=== PATIENT | female | born 1985 | race Caucasian/White ===

== ENCOUNTER 2017-08-30 19:46 | Inpatient (IN) | payer SELFPAY, OTHER ==
[2017-08-30] MEDS ORDERED: 0.9 % SODIUM CHLORIDE 10 ML DISP.SYRIN. IV (20:00)
[2017-08-30 20:07] LABS: URINE HCG POC HCG NEGATIVE (Negative)
[2017-08-30 20:12] LABS: BILIRUBIN,URINE NEGATIVE (NEG); CLARITY,URINE CLEAR; GLUCOSE,URINE NEGATIVE (NEG); NITRITE,URINE NEGATIVE (NEG); PROTEIN,URINE NEGATIVE (NEG-TRACE); UROBILINOGEN,URINE 0.2 mg/dL (0.2 mg/dL)
[2017-08-30 20:13] LABS: POC GLUCOSE 81 mg/dL (70-99)
[2017-08-30 20:17] LABS: ADD MAN DIFF? NO
[2017-08-30 20:18] LABS: COLOR,URINE STRAW
[2017-08-30 20:20] LABS: BACTERIA,URINE 0 /HPF (0-FEW); BASO % 0 % (0-3); EOS % 0 % (0-3); HEMATOCRIT 43.2 % (36.0-47.0); HEMOGLOBIN 14.6 g/dL (12.0-15.5); LYMPH # 3.5 x10^3/uL (1.0-4.8); LYMPH % 44 % (24-48); MEAN CORPUSCULAR HEMOGLOBIN 29 pg (25-35); MEAN CORPUSCULAR HGB CONC 34 g/dL (31-37); MEAN CORPUSCULAR VOLUME 87 fL (79-100); MONO # 0.3 x10^3/uL (0.0-1.1); MONO % 4 % (0-9); NEUT # 4.1 x10^3uL (1.8-7.7); NEUT % 52 % (31-73); PLATELET COUNT 324 x10^3/uL (140-400); RBC,URINE 0 /HPF (0-2); RED BLOOD COUNT 4.95 x10^6/uL (3.50-5.40); RED CELL DISTRIBUTION WIDTH 14.7 % (11.5-14.5); SQUAMOUS EPITHELIAL CELL,UR FEW /LPF; WBC,URINE 0 /HPF (0-4); WHITE BLOOD COUNT 7.9 x10^3/uL (4.0-11.0)
[2017-08-30 20:26] LABS: BARBITURATES NEG (NEG); BENZODIAZEPINES POS (NEG); CANNABINOIDS NEG (NEG); COCAINE NEG (NEG); METHADONE NEG (NEG); OPIATES NEG (NEG); PHENCYCLIDINE NEG (NEG)
[2017-08-30 20:28] LABS: AMPHETAMINE/METHAMPHETAMINE POS (NEG); ETHANOL, URINE POS (NEG)
[2017-08-30 20:36] LABS: AMMONIA 25 mcmol/L (11-34)
[2017-08-30 20:38] LABS: ANION GAP 14 (6-14); BLOOD UREA NITROGEN 15 mg/dL (7-20); CALCIUM 8.9 mg/dL (8.5-10.1); CARBON DIOXIDE 24 mmol/L (21-32); CHLORIDE 106 mmol/L (98-107); CREATININE 0.6 mg/dL (0.6-1.0); GFR 115.1; GLUCOSE 90 mg/dL (70-99); POTASSIUM 4.1 mmol/L (3.5-5.1); SODIUM 144 mmol/L (136-145)
[2017-08-30 20:43] LABS: ALBUMIN 4.2 g/dL (3.4-5.0); ALK PHOS 75 U/L (46-116); ALT (SGPT) 52 U/L (14-59); AST (SGOT) 32 U/L (15-37); DIRECT BILIRUBIN < 0.1 mg/dL (0.0-0.2); MAGNESIUM 2.4 mg/dL (1.8-2.4); TOTAL BILIRUBIN 0.3 mg/dL (0.2-1.0); TOTAL PROTEIN 8.2 g/dL (6.4-8.2)
[2017-08-30 20:51] LABS: NT-PRO BNP 79 pg/mL (0-124)
[2017-08-30 20:51] LABS: CKMB INDEX 0.9 % (0-4); CKMB MASS 1.2 ng/mL (0.0-3.6); CREATINE KINASE 136 U/L (26-192)
[2017-08-30] MEDS: IV NORMAL SALINE 1000ML BAG 1,000 ML IV (20:54)
[2017-08-30] MEDS: MULTIVIT INFUSN,ADULT 4,VIT K 10 ML, THIAMINE 100 MG, FOLIC ACID 1 MG in IV NORMAL SALI... IV (20:54)
[2017-08-30 20:59] LABS: ETHANOL 381 mg/dL (0-10); SALIC < 2.8 mg/dL (2.8-20.0)
[2017-08-30 20:59] LABS: TROPONINI < 0.017 ng/mL (0.000-0.055)
[2017-08-30 21:00] LABS: ACETAMIN < 2 mcg/ml (10-30)
[2017-08-31] MEDS: IBUPROFEN 400 MG TABLET. PO (04:38)
[2017-08-31] MEDS: ONDANSETRON PF 4 MG/2 ML VIAL. IV (05:16)
[2017-08-31] MEDS: HYDROcodone/APAP 7.5/325MG 1 TAB TABLET PO ×2 (09:50→16:22)
[2017-08-31] MEDS: buPROPion XL 150 MG TAB.ER.24H. PO (11:25)
[2017-08-31] MEDS: ALPRAZolam 1 MG TABLET PO (16:22)
[2017-08-31] MEDS: ENOXAPARIN 40 MG/0.4 ML SYRINGE. SQ (18:00)
[2017-08-31] MEDS ORDERED: buPROPion SR 150 MG TABLET.SA PO (21:00)
[2017-09-01] MEDS ORDERED: THIAMINE 100 MG TABLET. PO (09:00)
[2017-09-01] MEDS ORDERED: FOLIC ACID 1 MG TABLET. PO (09:00)
== END 2017-08-31 18:03 | disposition left against medical advice (07) | DRG 918 ==
LOC: ER 19:46 → 5 SOUTH 21:39
DX: T42.4X1A Poisoning by benzodiazepines, accidental (unintentional), initial encounter (principal); F10.129 Alcohol abuse with intoxication, unspecified; F17.210 Nicotine dependence, cigarettes, uncomplicated; G89.29 Other chronic pain; T42.4X5A Adverse effect of benzodiazepines, initial encounter; Z91.19 Patient's noncompliance with other medical treatment and regimen; F32.9 Major depressive disorder, single episode, unspecified; Z53.21 Procedure and treatment not carried out due to patient leaving prior to being seen by health care provider; F41.9 Anxiety disorder, unspecified; M54.5 Low back pain; Y92.89 Other specified places as the place of occurrence of the external cause; T51.91XA Toxic effect of unspecified alcohol, accidental (unintentional), initial encounter
CPT/HCPCS: 36415; 51701; 70450; 71045; 80048; 80076; 80307; 80329; 81001; 81025; 82140; 82553; 82962; 83735; 83880; 84484; 85025; 93005; 96365; 96366; 99285; 99285-25; G0480; J2405; J7030